=== PATIENT | female | born 1975 | race Caucasian/White ===

== ENCOUNTER 2021-09-11 07:39 | Day surgery (SDC) | payer BC, SELFPAY ==
[~2021-09-11] VITALS: Ht 172.7 cm; Wt 65.3 kg
[2021-09-11] MEDS ORDERED: DEXAMETHASONE SOD PHOSPHATE 4 MG/ML VIAL IVP ONE (07:40)
[2021-09-11] MEDS ORDERED: fentaNYL CITRATE 250 MCG/5 ML AMP IV ONE (07:40)
[2021-09-11] MEDS ORDERED: ceFAZolin SODIUM 1 GM VIAL IV ONE (07:40)
[2021-09-11] MEDS ORDERED: LR 1,000 ML IV.SOLN IV ONE (07:40)
[2021-09-11] MEDS ORDERED: SEVOFLURANE 15 MIN GAS INH ONE (07:40)
[2021-09-11] MEDS ORDERED: METOCLOPRAMIDE HCL 10 MG/2 ML VIAL IVP ONE (07:40)
[2021-09-11] MEDS ORDERED: MIDAZOLAM HCL 5 MG/5 ML VIAL IVP ONE (07:40)
[2021-09-11] MEDS ORDERED: LIDOCAINE JECT 2% PF 100 MG/5ML SYRINGE IVP ONE (07:40)
[2021-09-11] MEDS ORDERED: NS IRRIG SOLN 1000 ML IR ONE (07:40)
[2021-09-11] MEDS ORDERED: ONDANSETRON HCL 4 MG/2 ML VIAL IVP ONE (07:40)
[2021-09-11] MEDS ORDERED: KETOROLAC TROMETHAMINE 30 MG VIAL IVP ONE (07:40)
[2021-09-11] MEDS ORDERED: NS 500 ML IV.SOLN IV ONE (07:40)
[2021-09-11] MEDS ORDERED: PROPOFOL 200MG/ 20ML VIAL (DIPRIVAN) IV ONE (07:40)
[2021-09-11 08:01] LABS: HCG,QUAL RESULT NEGATIVE (NEGATIVE)
[2021-09-11] MEDS ORDERED: IBUPROFEN 800 MG TABLET PO PRN (10:45)
[2021-09-11] MEDS ORDERED: OXYCODONE/ACETAMINOPHEN 5-325 TABLET PO PRN ×2 (10:45)
[2021-09-11] MEDS ORDERED: ONDANSETRON HCL 4 MG/2 ML VIAL IM PRN (10:45)
[2021-09-11 13:02] VITALS: BP_SYST 129
== END 2021-09-11 12:25 | disposition home or self-care (01) ==
LOC: SDS 07:39 → SMU 07:40 → SDS 12:25
PROVIDERS: ATTEND Obstetrics & Gynecology
DX: N93.9 Abnormal uterine and vaginal bleeding, unspecified (principal); N84.0 Polyp of corpus uteri; J45.909 Unspecified asthma, uncomplicated; R93.89 Abnormal findings on diagnostic imaging of other specified body structures; Z79.899 Other long term (current) drug therapy; Z20.822 Contact with and (suspected) exposure to COVID-19
CPT/HCPCS: 58563; 84703; 88305; C1819; J0690; J1100; J1885; J2250; J2405; J2704; J2765; J3010; J7040; J7120; U0003